=== PATIENT | female | born 1995 | race Caucasian/White ===

== ENCOUNTER 2021-02-05 14:57 | Emergency (ER) | payer MEDICAID, SELFPAY ==
[2021-02-05 14:58] VITALS: BP 96/67; PULSE 111; RESP 20; TEMP 37.1; O2SAT 99; BMI 20.2
[2021-02-05] MEDS: Ondansetron ODT 4 MG Tablet PO (15:31)
[2021-02-05] MEDS: cycloBENZAPRine HCl 10 MG Tablet PO (15:31)
[2021-02-05] MEDS: HYDROcodone Bitartrate/Apap 5/325 Tablet PO (15:31)
--- NOTE | 2021-02-05 15:35 | ED.DCSUM_ITS ---
- ER Visit Summary Date of Service: 02/05/21 Chief Complaint: Low back pain History of Present Illness: The patient is a 25 F with no primary care physician. She reports she has low back pain that began today. She continuous sharp pain that waxes and wanes. Is 9/10 at worse and 7/10 currently. Is worsened by movement and standing. Relieved by remaining still. She taken Tylenol and ibuprofen without relief. States that it radiates down the back of both legs to the level of her calves. No numbness in her legs. No problems with her bowels or her bladder. No groin numbness. No recent trauma. No fall, MVA, or change in activity. Patient denies red flags. Physical Examination: Vitals: Stable. Afebrile. General: A&O x 3. NAD. Cardiovascular exam: Regular rate and rhythm, no murmur, rub or gallop. Respiratory exam: Clear to auscultation bilaterally. No wheezes or stridor. Abdominal exam: Soft, nontender, nondistended, normal bowel sounds. No peritoneal signs. Back: Diffuse moderate tenderness to palpation over the lumbar spine and the paraspinous musculature in the lumbar region. No point tenderness. Negative straight leg bilaterally. 5/5 DF, PF, EHL bilaterally. Normal sensation to light touch throughout. Extremity: No clubbing, cyanosis, or edema. Test Results: Urinalysis is negative. test is negative. Emergency Department Course and Treatment: Patient was given [place] and Flexeril p.o. She is resting more comfortably. Treatment Plan: Patient will be discharged instructions to continue her Tylenol and ibuprofen. She given prescriptions for [place] and Flexeril for severe pain and instructed to use a TENS unit and warm compresses. Follow-up with Dr. Baldo Dominguez, who is next on the list for no doc, in 3 to 5 days if not improving. Return to the emergency department for any worsening symptoms. Disposition: To home in improved and stable condition. Impression: 1. Low back pain. This note was generated with Fanne[employer] software. It may contain incorrect words, spelling, and punctuation that were not noted in review of the chart prior to signing ED Disposition - Plan for ED Patient: Instructions: ED Back Pain (Acute or Chronic) Prescriptions: cycloBENZAPRine HCl [Flexeril] 10 mg PO TID PRN #20 tablet PRN Reason: Muscle Spasm Hydrocodone Bitart/Apap 5-325 [[place] 5MG-325MG] 1 tablet PO Q4H PRN PRN 2 Days #10 tablet PRN Reason: Pain Referrals: Baldo Ley MD [STAFF PHYSICIAN] - 3-5 Days if not improving
[2021-02-05 15:44] LABS: Bacteria 0 SEEN /hpf (None Seen); Mucous, Urine 0 SEEN /hpf (<or=2+); Red Blood Cells-Urine 0 SEEN /hpf (0-5); Squamous Epithelial Cells - UA 0 SEEN /hpf (5-10); White Blood Cells 0 SEEN /hpf (0-5)
[2021-02-05 15:48] LABS: Color, Urine Straw (Yellow); Glucose, Dipstick Normal (Normal); Leukocyte Esterase-Dipstick 25 /ul (Negative); Nitrite-Dipstick Negative (Negative); Occult Blood-Urine Negative /ul (Negative); Protein-Dipstick Negative (Negative); Urine Bilirubin Dipstick Negative (Negative); Urine Clarity Sl. Cloudy (Clear); Urine Urobilinogen Normal (Normal)
[2021-02-05 15:56] LABS: Ketone-Dipstick 150 mg/dl (Negative)
[2021-02-05 16:14] LABS: Internal QC Validated? YES +Cl - CLEAR BKGD; Pregnancy, Urine Negative Negative
[2021-02-05 16:32] VITALS: RESP 14
== END 2021-02-05 16:32 | disposition home or self-care (01) ==
LOC: ED 16:07
PROVIDERS: Emergency Provider Emergency Medicine
DX: M54.5 Low back pain (principal); Z72.0 Tobacco use
CPT/HCPCS: 81001; 81025; 99283

== ENCOUNTER 2021-11-25 15:04 | Emergency (ER) | payer BC, MEDICAID, SELFPAY ==
[2021-11-25 15:05] VITALS: BP 98/72; PULSE 126; RESP 20; TEMP 37.1; O2SAT 97; BMI 21.4
--- NOTE | 2021-11-25 16:32 | EDS_ITS ---
HPI History of Present Illness Chief Complaint: Back Informant: patient Narrative Narrative: Patient is a 26-year-old female presenting with acute low back pain. Patient states he started having low back pain around 1 AM and woke her from sleep. She states it radiates down her lateral thighs bilaterally. She last took ibuprofen and Tylenol around 10 AM. She states she is in a lot of pain and has been crying because she is uncomfortable. She had a similar event about 1 year ago when she was seen in the ER. At that time they gave her pain medicine and got better. She went to urgent care earlier today and they said it is likely sciatica but can do anything about it and recommend she come to the emergency room. Patient denies any new injuries. She has had some associated nausea but attributes that to her pain. Patient denies any bowel or bladder i ncontinence. Denies any fever. She has any weakness of her legs or numbness. No other complaints at this time. [facility] Medical History (Updated 11/25/21 @ 17:[address] Erma Cha, ) H/O emotional problems Hx of delivery (~2015) Polycystic ovaries Home Medications Iud Mirena 02/05/21 [History Last Taken Unknown] cyclobenzaprine 10 mg PO TID PRN #14 tab 11/25/21 [Rx Last Taken Unknown] ibuprofen 600 mg PO Q6H PRN #20 tab 11/25/21 [Rx Last Taken Unknown] Allergy/AdvReac Type Severity Reaction Status Date / Time No Known Allergies Allergy Verified 11/25/21 15:07 Family History (Updated 11/27/19 @ 09:19 by Jennifer Odell) Grandfather Diabetes Alcoholism Arthritis Grandmother Hypertension Thyroid disorder Anxiety Arthritis Depression High cholesterol Mental disorder Surgical History (Updated 11/27/19 @ 09:13 by Jennifer Odell) History of tonsillectomy and adenoidectomy (~2003) Social History (Updated 11/27/19 @ 09:14 by Jennifer Odell) Smoking Status: Never smoker alcohol intake: never substance use type: marijuana what type of physical activity do you participate in: walking and running frequency: 3-4 times per week duration: 30-45 minutes/day ROS ROS ED Constitutional Constitutional ED: Denies chills or fever(s) Eyes Eyes: Denies change in vision ENT ENT ED: Denies sore throat Cardiovascular Cardiovascular: Denies chest pain Respiratory/Chest Respiratory/Chest: Denies dyspnea Gastrointestinal Gastrointestinal: Denies abdominal pain, diarrhea, nausea or vomiting Genitourinary Genitourinary ED: Denies dysuria or urinary frequency Musculoskeletal Musculoskeletal: Reports back pain; Denies arthralgias, myalgias or neck pain Integumentary Denies rash Neurologic Neurologic: Denies headache(s) or weakness Psychiatric Psychiatric: Denies anxiety or depression EXAM Physical Exam Const Vital Signs: 11/25/21 15:05 Temperature 98.7 F Temperature Source Temporal Pulse Rate 126 H Respiratory Rate 20 H Blood Pressure 98/72 Blood Pressure Mean 80 Pulse Ox 97 Oxygen Delivery Method Room Air Positive well nourished and well developed General Appearance ED: well developed HEENT Reports moist mucous membranes HEENT Narrative: No nuchal rigidity Eyes PERRL and EOMs intact bilaterally Neck no lymphadenopathy and supple Resp normal respiratory effort and clear to auscultation bilaterally Cardio regular rate, regular rhythm and no murmurs GI normal to inspection, nondistended, normoactive bowel sounds, soft to palpation and non-tender Back/Spine Back/Spine Narrative: No midline tenderness. Bilateral L5 paraspinal tenderness to palpation, right worse than left. Normal strength with dorsiflexion and plantar flexion. Patient is able to go up on the balls of her feet as well as the heels without any weakness. Normal strength and sensation with flexion extension of the lower legs. Lumbar Spine / Lower Back: straight leg raise negative bilaterally Extremity normal to inspection General Extremety ED: Negative for edema or tenderness General Extremity: Negative for edema Neuro oriented x3 and no sensory deficits noted Sensorium / Orientation: alert Motor Exam: strength 5/5 throughout Deep Tendon Reflexes: Rt Patellar (L4): 3+ and Lt Patellar (L4): 2+ Deep Tendon Reflexes Back: Rt Patellar (L4): 3+ and Lt Patellar (L4): 2+ Psych mental status grossly normal Mood & Affect: tearful Skin no rashes or lesions noted MDM MDM MDM Narrative Medical decision making narrative: Patient evaluate for atraumatic low back pain. I suspect this is muscle skeletal. It is possible she could have a herniated disc however she does not have findings concerning for cauda equina syndrome or any emergent spinal compression. She is given a dose of IM morphine, oral Motrin and Flexeril with significant improvement of her symptoms. Will be discharged on a course of NSAIDs and Flexeril. She is counseled return precautions and the need for outpatient follow-up she is given referral for primary care doctor she does not currently have 1. She is counseled that at this time imaging is not indicated. She is not having midline tenderness. She is given the red flag signs of cauda equina syndrome and return precautions. Discharge Plan Triage Chief Complaint: Back ED Provider: Erma Cha Dx/Rx/DC Orders Clinical Impression: Acute bilateral low back pain Instructions: ED Back Pain (Acute or Chronic), ED Sciatica Prescriptions: New ibuprofen 600 mg tablet 600 mg PO Q6H PRN (Reason: pain) Qty: 20 RF: 0 cyclobenzaprine 10 mg tablet 10 mg PO TID PRN (Reason: muscle spasm) Qty: 14 RF: 0 No Action Iud Mirena RF: 0 Primary Care Provider: Care Physician,No Primary Referrals: Christopher Park MD [STAFF PHYSICIAN] - Amanuel Meehan DO [STAFF PHYSICIAN] - Care Physician,No Primary [Primary Care Provider] - Disposition Disposition: Home, Self Care
[2021-11-25] MEDS: Ibuprofen 600 MG Tablet PO (16:42)
[2021-11-25] MEDS: Morphine 4 MG/ML Syringe IM (16:42)
[2021-11-25] MEDS: cycloBENZAPRine HCl 10 MG Tablet PO (16:42)
== END 2021-11-25 17:27 | disposition home or self-care (01) ==
PROVIDERS: Emergency Provider Emergency Medicine; Visit Provider Emergency Medicine
DX: M54.50 Low back pain, unspecified (principal); F12.10 Cannabis abuse, uncomplicated
CPT/HCPCS: 96372; 99283

== ENCOUNTER → 2022-11-24 | Outpatient (CLI) | payer MEDICAID, SELFPAY ==
[2022-11-24 11:18] LABS: Absolute Lymphocyte Count 1.88 X10^3/uL (0.83-4.51); Absolute Neutrophil Count 3.5 X10^3/uL (2.0-7.7); Basophil# 0.02 X10^3/uL; Basophil% 0.3 % (0-1); Eosinophil# 0.05 X10^3/uL; Eosinophils% 0.8 % (0-5); Hematocrit 40.2 % (37-47); Hemoglobin 13.8 g/dL (12.0-15.0); Lymphocyte # 1.88 X10^3/ul (0.83-4.51); Lymphocyte % 30.5 % (19-41); Mean Corp Hgb Conc 34.3 g/dL (32-36); Mean Corpuscular Hgb 31.2 pg (27.0-32.0); Mean Corpuscular Volume 90.7 fL (81-99); Mean Platelet Vol. 9.2 fl (6.2-12.0); Monocyte# 0.67 X10^3/uL; Monocyte% 10.9 % (0-10); NRBC Flagged by Analyzer 0 % (0-5); Neutrophil # 3.53 X10^3/uL (2.7-7.7); Neutrophil % 57.3 % (47-70); Platelet Count 259 K/mm3 (150-450); RBC Distribution Width SD 39.7 fl (35.1-43.9); Red Blood Count 4.43 M/mm3 (4.2-5.4); White Blood Count 6.2 K/mm3 (4.4-11.0)
[2022-11-24 12:07] LABS: HIV - WCH Non-Reactive (Nonreactive); Hepatitis B Surface Antigen Non-Reactive (Nonreactive); Hepatitis C Antibody Non-Reactive (Nonreactive); Rubella IgG Reactive (Nonreactive); Syphilis Antibodies Non-reactive
[2022-11-25 14:51] LABS: V-Zoster IgG (Immunity) < 135 index (Immune >165)
[2022-11-28 17:17] LABS: HPV Reflexed? NOT INDICATED
== END | disposition home or self-care (01) ==
LOC: WOBLAB 10:23
PROVIDERS: Visit Provider Obstetrics & Gynecology
DX: Z34.81 Encounter for supervision of other normal pregnancy, first trimester (principal)
CPT/HCPCS: 36415; 85025; 86703; 86762; 86780; 86787; 86803; 87086; 87088; 87340; 88175; G0145

== ENCOUNTER → 2023-04-06 | Outpatient (CLI) | payer MEDICAID, SELFPAY ==
[2023-04-06 09:29] LABS: Absolute Lymphocyte Count 1.08 X10^3/uL (0.83-4.51); Absolute Neutrophil Count 7.1 X10^3/uL (2.0-7.7); Basophil# 0.02 X10^3/uL; Basophil% 0.2 % (0-1); Eosinophil# 0.06 X10^3/uL; Eosinophils% 0.6 % (0-5); Hematocrit 39.4 % (37-47); Hemoglobin 13.4 g/dL (12.0-15.0); Lymphocyte # 1.08 X10^3/ul (0.83-4.51); Lymphocyte % 11.2 % (19-41); Mean Corpuscular Hgb 31.7 pg (27.0-32.0); Mean Corpuscular Volume 93.1 fL (81-99); Mean Platelet Vol. 9.8 fl (6.2-12.0); Monocyte# 1.36 X10^3/uL; Monocyte% 14.2 % (0-10); NRBC Flagged by Analyzer 0 % (0-5); Neutrophil # 7.05 X10^3/uL (2.7-7.7); Neutrophil % 73.4 % (47-70); Platelet Count 222 K/mm3 (150-450); RBC Distribution Width CV 12.6 % (11.6-14.6); RBC Distribution Width SD 42.8 fl (35.1-43.9); Red Blood Count 4.23 M/mm3 (4.2-5.4); White Blood Count 9.6 K/mm3 (4.4-11.0)
[2023-04-06 09:34] LABS: Glucose Challenge Gest 1H 50g 101 mg/dL (70-140)
[2023-04-06 09:57] LABS: Syphilis Antibodies Non-reactive
== END | disposition home or self-care (01) ==
LOC: WOBLAB 08:36
PROVIDERS: Visit Provider Obstetrics & Gynecology
DX: Z34.82 Encounter for supervision of other normal pregnancy, second trimester (principal)
CPT/HCPCS: 36415; 82950; 85025; 86780

== ENCOUNTER → 2023-06-08 | Outpatient (CLI) | payer MEDICAID, SELFPAY ==
[2023-06-08 12:22] LABS: Hematocrit 38.7 % (37-47); Hemoglobin 13.1 g/dL (12.0-15.0); Mean Corp Hgb Conc 33.9 g/dL (32-36); Mean Corpuscular Volume 91.7 fL (81-99); Mean Platelet Vol. 11.1 fl (6.2-12.0); Platelet Count 222 K/mm3 (150-450); RBC Distribution Width CV 12.6 % (11.6-14.6); RBC Distribution Width SD 41.5 fl (35.1-43.9); Red Blood Count 4.22 M/mm3 (4.2-5.4); White Blood Count 7.7 K/mm3 (4.4-11.0)
== END | disposition home or self-care (01) ==
LOC: LABSPEC 11:56
PROVIDERS: Visit Provider Obstetrics & Gynecology
DX: Z34.81 Encounter for supervision of other normal pregnancy, first trimester (principal)
CPT/HCPCS: 36415; 85027

== ENCOUNTER 2023-06-15 10:50 | Outpatient (CLI) | payer MEDICAID, SELFPAY ==
[2023-06-15 11:30] VITALS: BMI 31.3
[2023-06-15 11:35] VITALS: BP 118/74; PULSE 81; TEMP 36.4
[2023-06-15 11:36] VITALS: PULSE 85; O2SAT 96
[2023-06-15 11:50] VITALS: BP 124/78; PULSE 80
[2023-06-15 12:04] LABS: Hematocrit 35.8 % (37-47); Hemoglobin 12.8 g/dL (12.0-15.0); Mean Corp Hgb Conc 35.8 g/dL (32-36); Mean Corpuscular Volume 89.5 fL (81-99); Mean Platelet Vol. 10.8 fl (6.2-12.0); Platelet Count 234 K/mm3 (150-450); RBC Distribution Width CV 12.9 % (11.6-14.6); RBC Distribution Width SD 41.8 fl (35.1-43.9); White Blood Count 7.8 K/mm3 (4.4-11.0)
[2023-06-15 12:05] VITALS: BP 125/79; PULSE 95
[2023-06-15 12:20] VITALS: BP 128/77; PULSE 89
[2023-06-15 12:35] VITALS: BP 119/78; PULSE 74
[2023-06-15 12:45] LABS: ALB/GLOB Ratio 0.6 RATIO (0.9-2.4); AST(SGOT) 21 U/L (15-37); Alanine Aminotransfer ALT/SGPT 24 U/L (13-56); Albumin, Serum 2.4 g/dL (3.2-5.0); Alkaline Phosphatase 243 U/L (45-117); Anion Gap 5 (5-15); BUN 6 mg/dL (7-18); BUN/Creat Ratio 10.3 RATIO (10-20); Calcium,Total 8.3 mg/dL (8.5-10.1); Chloride 112 mmol/L (98-107); Creatinine, Serum 0.58 mg/dL (0.55-1.02); EST Glomerular Filtration Rate 133 mL/min (>60); Est Glom Filt Rate - Afr Amer 161 mL/min (>60); Estimated Creatinine Clearance 149.57 ml/min; Globulin 4.3 g/dL (2.2-4.2); Glucose 91 mg/dL (74-106); LDH 143 U/L (84-246); Protein, Total 6.7 g/dL (6.4-8.2); Sodium Level 138 mmol/L (136-145)
--- NOTE | 2023-06-15 15:43 | OB.TRI.NOTE ---
HPI - General General Date of Service: 06/15/23 HPI Narrative MISTY CASTELLANO, is a 27 F who presents from office with elevated blood pressures. Denies headache, vision change, chest pain, shortness of breath, nausea vomit, right upper quadrant pain. PFSH PFSH Medical History (Updated 06/15/23 @ 15:[address] Kvng Cruz MD) H/O emotional problems Hx of delivery (~2015) Polycystic ovaries Home Medications cyclobenzaprine 10 mg tablet 10 mg PO TID PRN muscle spasm #14 tabs 11/25/21 [Rx Last Taken Unknown] ibuprofen 600 mg tablet 600 mg PO Q6H PRN pain #20 tabs 11/25/21 [Rx Last Taken Unknown] prenat.vits,bartolo,[id number] 1 tab PO DAILY 06/15/23 [History Last Taken 06/14/23 08:00 1 TAB] Allergy/AdvReac Type Severity Reaction Status Date / Time No Known Allergies Allergy Verified 06/15/23 11:39 Family History (Updated 11/27/19 @ 09:19 by Jennifer Odell) Grandfather Diabetes Alcoholism Arthritis Grandmother Hypertension Thyroid disorder Anxiety Arthritis Depression High cholesterol Mental disorder Surgical History (Updated 11/27/19 @ 09:13 by Jennifer Odell) History of tonsillectomy and adenoidectomy (~2003) Social History (Updated 11/27/19 @ 09:14 by Jennifer Odell) Smoking Status: Never smoker alcohol intake: never substance use type: marijuana what type of physical activity do you participate in: walking and running frequency: 3-4 times per week duration: 30-45 minutes/day History Elective abortions Hx Para 0 Spontaneous abortions Hx # Term Pregnancies Ectopic pregnancies Hx # Pregnancies Multiple births # of living children NST FHR Rate Baby A Baseline: 120 Variability:: Moderate Accelerations:: 15 x 15 Decelerations:: None NST Reactive:: Yes Uterine Activity:: Few contractions Assessment & Plan (1) : PLAN: Patient sent from office with elevated blood pressures called charge nurse given orders for every 15 minute blood pressure checks and hellp labs. Called by nursing patient asymptomatic with normal blood pressures since arrival to triage and labs within normal limits. Educated nursing okay to discharge home with follow-up scheduled appointments
== END 2023-06-15 13:30 | disposition home or self-care (01) ==
LOC: WPOUT 10:59 → WP 10:59
PROVIDERS: Referring Provider Obstetrics & Gynecology; Visit Provider Obstetrics & Gynecology
DX: O26.899 Other specified pregnancy related conditions, unspecified trimester (principal); R03.0 Elevated blood-pressure reading, without diagnosis of hypertension; Z3A.00 Weeks of gestation of pregnancy not specified
CPT/HCPCS: 36415; 59025; 59050; 80053; 83615; 85027; 99221; G0378

== ENCOUNTER 2023-06-21 15:50 | Outpatient (CLI) | payer MEDICAID, SELFPAY ==
[2023-06-21 16:07] VITALS: BP 121/84; PULSE 92
[2023-06-21 16:08] VITALS: TEMP 36.3
[2023-06-21 16:18] VITALS: BMI 30.9
[2023-06-21 16:23] VITALS: BP 121/89; PULSE 93
--- NOTE | 2023-06-21 20:03 | OB.TRI.NOTE ---
HPI - General General Date of Service: 06/21/23 HPI Narrative MISTY CASTELLANO, is a 27 F who presents with contractions PFSH PFSH Medical History (Updated 06/15/23 @ 15:[address] Kvng Cruz MD) H/O emotional problems Hx of delivery (~2015) Polycystic ovaries Home Medications prenat.vits,bartolo,[id number]-[id number] 1 tab PO DAILY 06/15/23 [History Last Taken 06/20/23] Allergy/AdvReac Type Severity Reaction Status Date / Time No Known Allergies Allergy Verified 06/21/23 16:16 Family History (Updated 11/27/19 @ 09:19 by Jennifer Odell) Grandfather Diabetes Alcoholism Arthritis Grandmother Hypertension Thyroid disorder Anxiety Arthritis Depression High cholesterol Mental disorder Surgical History (Updated 11/27/19 @ 09:13 by Jennifer Odell) History of tonsillectomy and adenoidectomy (~2003) Social History (Updated 11/27/19 @ 09:14 by Jennifer Odell) Smoking Status: Never smoker alcohol intake: never substance use type: marijuana what type of physical activity do you participate in: walking and running frequency: 3-4 times per week duration: 30-45 minutes/day History Elective abortions Hx Para 0 Spontaneous abortions Hx # Term Pregnancies Ectopic pregnancies Hx # Pregnancies Multiple births # of living children NST FHR Rate Baby A Baseline: 120 Variability:: Moderate Accelerations:: 15 x 15 Decelerations:: None NST Reactive:: Yes Uterine Activity:: Every 5 minutes Assessment & Plan (1) : PLAN: Patient seen in office with contractions sent to labor and delivery to rule out labor. Called by nursing with repeat cervical exam 2 hours later unchanged from office exam and nursing states patient comfortable and wishes to go home. Discussed care plan with nursing and discussed okay to go home with labor precautions
== END 2023-06-21 17:40 | disposition home or self-care (01) ==
LOC: WPOUT 15:57 → WP 15:58
PROVIDERS: Referring Provider Obstetrics & Gynecology; Visit Provider Obstetrics & Gynecology
DX: O47.9 False labor, unspecified (principal); Z3A.00 Weeks of gestation of pregnancy not specified
CPT/HCPCS: 59025; 59050

== ENCOUNTER 2023-06-22 01:13 | Inpatient (IN) | payer MEDICAID, SELFPAY ==
[2023-06-22] VITALS (59 sets, daily range): BP systolic 107–136; BP diastolic 58–90; PULSE 53–202; RESP 16; TEMP 36.2–36.8; O2SAT 91–100; BMI 31.5
[2023-06-22] MEDS: Lactated Ringers 1,000 ML 200 ML IV (01:20)
[2023-06-22] MEDS: LACTATED RINGERS 500 ML 999 ML IV ×2 (01:25→02:30)
[2023-06-22 01:40] LABS: Absolute Lymphocyte Count 2.63 X10^3/uL (0.83-4.51); Absolute Neutrophil Count 7.9 X10^3/uL (2.0-7.7); Basophil# 0.02 X10^3/uL; Basophil% 0.2 % (0-1); Eosinophil# 0.04 X10^3/uL; Eosinophils% 0.3 % (0-5); Hematocrit 38.2 % (37-47); Hemoglobin 12.9 g/dL (12.0-15.0); Lymphocyte # 2.63 X10^3/ul (0.83-4.51); Lymphocyte % 21.9 % (19-41); Mean Corp Hgb Conc 33.8 g/dL (32-36); Mean Corpuscular Hgb 30.2 pg (27.0-32.0); Mean Corpuscular Volume 89.5 fL (81-99); Mean Platelet Vol. 10.8 fl (6.2-12.0); Monocyte# 1.39 X10^3/uL; Monocyte% 11.6 % (0-10); NRBC Flagged by Analyzer 0 % (0-5); Neutrophil # 7.89 X10^3/uL (2.7-7.7); Neutrophil % 65.5 % (47-70); Platelet Count 215 K/mm3 (150-450); RBC Distribution Width SD 41.6 fl (35.1-43.9); Red Blood Count 4.27 M/mm3 (4.2-5.4)
[2023-06-22] MEDS: fentaNYL-bupivacaine (epidural) 100 ML BAG EPIDURAL (02:11)
[2023-06-22] MEDS: Mag Hydrox/Al Hydrox/Simeth 30 ML UDC PO (02:17)
[2023-06-22 02:25] LABS: Syphilis Antibodies Non-reactive
[2023-06-22] MEDS: Amnioinfusion- 0.9% NS 1,000 ML IV.SOLN. INTRA-UTER (02:33)
[2023-06-22] MEDS: Oxytocin 15 Units/NS 250ml 15 UNITS/250 ML IV.SOLN 83 UNITS IV (03:37)
[2023-06-22] MEDS: Oxytocin 10 UNITS/ML Vial IM (03:37)
--- NOTE | 2023-06-22 03:48 | PCM.HP.BLA ---
History and Physical Date of Admission: 06/22/23 Chief complaint: Leakage of fluid History of present illness: 27-year-old G2, P1 at 38 weeks and 5 days with TATUM 07/01/2023 arrives with leakage of fluid. Denies headache, vision changes, chest pain, shortness of breath, nausea vomit, right upper quadrant pain. Patient states good movement. is complicated by BMI 31 OB history: G1: 41-week male 8 pounds 12 ounces G2: Current Past medical history: None Medications: vitamin Allergies: No known drug allergies Past surgical history: None Social history: Former smoker, denies alcohol use or drug use Family history: Denies history DVT or PE Review of systems: Besides above pertinent positives a full review of systems was performed and found to be negative Physical exam: Vitals: Pulse 107 SpO2 94% on room air General: Well-appearing, no acute distress HEENT: Normocephalic/atraumatic no cervical lymphadenopathy Cardiac/respiratory: No use of accessory muscles, nonlabored breathing Abdomen: Soft, nontender, gravid Extremities: No peripheral edema normal peripheral pulses Psych: Normal affect, demeanor nonpressured speech Labs: White blood cell count 12.0 hemoglobin 12.9 hematocrit 38.2% platelets 215. RPR nonreactive Assessment plan: 27-year-old G2, P1 at 38 weeks and 5 days called by nursing with grossly ruptured given orders for admission and with GBS positive for penicillin. Given orders okay for epidural. Nursing called back with patient now comfortable with epidural in 6 cm. Subsequently called back with patient complete and ready for delivery. Patient seen and examined ready for delivery see operative note
--- NOTE | 2023-06-22 03:52 | EX.PCM.OBRPT ---
Vaginal Delivery Findings Description of Procedure: Normal spontaneous vaginal delivery of a viable male , vertex DREW. Head and shoulders delivered with ease. Cord clamped and cut. Baby handed off to patient. Placenta delivered intact via manual extraction after cord traction and fundal massage showed no progress. IM and IV oxytocin given per protocol. First-degree midline perineal laceration noted and repaired in typical fashion. EBL 250 cc. Apgars 8/9.
[2023-06-22] MEDS: Methylergonovine 0.2 MG/ML Ampul IM (04:17)
[2023-06-22] MEDS: DiphenhydrAMINE 25 MG Capsule PO (05:43)
[2023-06-22] MEDS: Acetaminophen 500 MG Tablet 1000 MG PO ×3 (05:44→22:14)
[2023-06-22] MEDS: Ondansetron 4 MG/2 ML Vial IV (05:45)
[2023-06-22] MEDS: Prenatal Vits Tablet 1 TABLET PO (10:19)
[2023-06-23] VITALS (7 sets, daily range): BP systolic 106–117; BP diastolic 68–74; PULSE 62–88; RESP 14–16; TEMP 36.4–37.1; O2SAT 97–98
[2023-06-23] MEDS: Ibuprofen 600 MG Tablet PO (03:44)
--- NOTE | 2023-06-23 08:10 | DCINST_ITS ---
Discharge Instructions Diet Discharge Diet: No restrictions Activity Discharge Activity: Return to Normal Activity and May Shower May resume sexual activity in: 4-6 weeks Weight Bearing Status: Weight bearing as tolerated Lifting Restrictions: No greater than 25 pounds Dressing / Incision Call your doctor if you observe: Fever of 101 or Higher, Change in Color, Inability to urinate, Using more than 1 pad per hour, Shortness of breath, Dizziness, Swelling in the ankles, Chest pain and Calf discomfort Follow Up Care Please Follow Up With: Kvng Cruz MD When: 4-week visit Test Results: Test results from this visit will be discussed in further detail at your follow- up appointment, if applicable. Discharge Plan Admission Admit Date/Time: 06/22/23 01:13 Primary Reason for Your Visit: Vaginal delivery Attending Provider: Kvng Cruz Primary Care Provider: Care PhysicianEmilia Primary Discharge Orders/Prescriptions Prescriptions: No Action prenat.vits,bartolo,[id number]-[id number] Tablet 1 tab PO DAILY Referrals / Follow Up: Care Physician,No Primary [Primary Care Provider] - Disposition Disposition (needs filled in before D/C Order can be placed): Home, Self Care
--- NOTE | 2023-06-23 08:10 | PCM.PN.OB ---
Subjective Subjective Feeling well. Lochia minimal. Objective Data Objective Data Vital Signs: Vital Signs Temp Pulse Resp BP Pulse Ox O2 Del Method 97.5 F L 70 14 106/69 98 Room Air 06/23/23 07:56 06/23/23 07:56 06/23/23 07:56 06/23/23 07:56 06/23/23 07:56 06/23/23 07:56 Oxygen Delivery Method Room Air Weight: 94 kg Body Mass Index (BMI) 31.5 Intake & Output: Intake and Output for Last 24 Hours 06/21/23 06/22/23 06/23/23 23:59 23:59 23:59 Intake Total 1815 / 1815 Output Total 1622 / 1622 Balance 193 / 193 Lab / Micro Data Attestation: I reviewed the patient's lab results. 06/22/23 01:20 Physical Exam Const alert, oriented x3 and no apparent distress HEENT normocephalic Head and Scalp: atraumatic Neck full ROM Resp normal respiratory effort Cardio regular rate GI normal to inspection, nondistended, normoactive bowel sounds GI Narrative: Uterus 2 cm below umbilicus Back/Spine normal ROM Extremity normal to inspection Extremity Narrative: Minimal pedal edema Neuro no focal motor deficits and no sensory deficits noted Psych mental status grossly normal and affect normal Assessment & Plan (1) Vaginal delivery: PLAN: day 1 status post . Doing well. Discharge home today.
== END 2023-06-23 15:00 | disposition home or self-care (01) | DRG 560 ==
LOC: WPOUT 01:14 → WP 01:14
PROVIDERS: Admitting Provider Obstetrics & Gynecology; Referring Provider Obstetrics & Gynecology; Visit Provider Obstetrics & Gynecology
DX: O70.0 First degree perineal laceration during delivery (principal); Z37.0 Single live birth; B95.1 Streptococcus, group B, as the cause of diseases classified elsewhere; O99.824 Streptococcus B carrier state complicating childbirth; Z87.891 Personal history of nicotine dependence; Z3A.38 38 weeks gestation of pregnancy
CPT/HCPCS: 59025; 59050; 85025; 86780; 86850; 86900; 86901; 99221; J7030; J7120; G0378; J2405